=== PATIENT | female | born 1975 | race Caucasian/White ===

== ENCOUNTER 2023-09-27 14:35 | Emergency (ER) | payer OTHER ==
[2023-09-27 14:40] VITALS: BP 165/76; PULSE 74; RESP 18; TEMP 98.8; BMI 33.5
[2023-09-27] MEDS ORDERED: ALBUTEROL SO4 2.5/IPRATROPIUM 0.5 INH SOL 3 ML VIAL.NEB. NEB ONE (14:52)
[2023-09-27] MEDS: ALBUTEROL SO4 2.5/IPRATROPIUM 0.5 INH SOL 3 ML VIAL.NEB. NEB ONE (14:58)
[2023-09-27] MEDS ORDERED: IBUPROFEN 600 MG TABLET (FP) PO ONE (15:51)
[2023-09-27] MEDS ORDERED: ACETAMINOPHEN 500 MG TABLET (FP) ONE (15:51)
[2023-09-27] MEDS: ACETAMINOPHEN 500 MG TABLET (FP) PO ONE (15:54)
[2023-09-27] MEDS: IBUPROFEN 600 MG TABLET (FP) PO ONE (15:54)
== END 2023-09-27 15:55 | disposition home or self-care (01) ==
LOC: JERFT 14:35
PROC: 3E0F7GC Introduction of Other Therapeutic Substance into Respiratory Tract, Via Natural or Artificial Opening (ICD-10-PCS; principal; 2023-09-27)
DX: R05.8 Other specified cough (principal); R06.9 Unspecified abnormalities of breathing; J02.9 Acute pharyngitis, unspecified; Z20.822 Contact with and (suspected) exposure to COVID-19
CPT/HCPCS: 0241U-QW; 99283-25